=== PATIENT | female | born 1960 | race Caucasian/White ===

== ENCOUNTER 2019-07-25 09:12 | Outpatient (CLI) | payer BC, SELFPAY ==
[2019-07-25 10:08] LABS: Alanine Aminotransferase 22 U/L (0-33); Albumin Level 4.3 g/dL (3.5-5.2); Alkaline Phosphatase 90 IU/L (35-105); Anion Gap 14.8 (5-19); Aspartate Amino Transferase 24 U/L (0-32); Blood Urea Nitrogen 16 mg/dL (6-20); Calcium 9.9 mg/Dl (8.6-10.0); Carbon Dioxide 25 mmol/L (22-29); Chloride 101 mmol/L (98-107); Globulin 3.1 g/dL (1.3-4.6); Glomerular Filtration Rate 85.6 mL/min (90-130); Glucose 101 mg/dL (74-109); Potassium 3.8 mmol/L (3.5-5.1); Sodium 137 mmol/L (136-145); Total Bilirubin 0.5 mg/dL (0.15-1.2); Total Protein 7.4 g/dL (6.6-8.7)
[2019-07-25 10:30] LABS: CA 15-3 13.3 U/mL (0-25)
--- NOTE | 2019-07-25 17:01 | ONC FU_ITS ---
Dr. Florez follow up note Patient: Mamie Krueger Unit #: [id number]: 1960 Dicatated By: Marie Florez M.D.Date of Visit:Jul 25, 2019 Onc Med Follow-up/Prog Note History of Present Illness: Pati Pinzon, 59-year-old female with history of fibrocystic involving left breast status post biopsy in 2015 . On the 11/20/2016 follow-up mammogram showed microcalcification in the central right breast and subsequently underwent stereotactic needle biopsy of right breast on 12/04/2016 it showed infiltrating ductal carcinoma grade 3 ER/UT negative HER-2/coirnna + 3+ and on 12/17/2016 she underwent right modified radical mastectomy with sentinel lymph node dissection final path report showed residual infiltrating ductal carcinoma grade 3 tumor size 0.5 cm surgical margin negative no lymphovascular involvement to lymph nodes were removed from right axilla both were negative malignancy Patient was seen by medical oncologist Dr. Wood Fulton in [place] and he did recommend Herceptin plus chemotherapy somehow patient did not keep follow with him. Now being observed at patient request Came for follow-up, denies any specific complaints, no fever or chills, no nausea or vomiting, no diarrhea constipation, no jaundice. Patient stopped taking all herbs . And also had colonoscopy done 05/26/2019, as per patient, polyp was removed it was benign. Medications: C 500 1 Tablet (of 500 mg) Oral daily, Calcium Carb-Cholecalciferol 1 Tablet (of 600-1000 mg - Units) Oral daily, D3-1000 1 Tablet (of 1000 Units) Oral daily, Eye-Ipyush Extra 1 Tablet Capsule Oral daily, Probiotic 1 Tablet Capsule Oral daily Allergies: Sulfa Antibiotics Review of Systems: Constitutional - Appetite is good and weight is stable. No fever, chills, hot flashes, or night sweats. Energy level is fair, ENMT - No sinus congestion/drainage. No mouth sores. No sore throat or difficulty swallowing, Hematologic/Lymphatic - No abnormal bruising or bleeding, Respiratory - No shortness of breath. No cough. No pleuritic pain or hemoptysis, Cardiovascular - No angina pain. No palpitations, Gastrointestinal - No nausea or vomiting. No heartburn or acid reflux. No diarrhea or constipation. No blood in the stool or black stools, Genitourinary (F) - No dysuria or hematuria. No urinary frequency. No urgency or incontinence, Musculoskeletal - No joint or bone pain, Neurologic - No headache or dizziness. No numbness/paresthesias or other focal neurologic symptoms, Psychiatric - No anxiety or depression. No insomnia. Vital Signs: Performed on Jul 25, 2019 11:17 Height - 65.00 in Weight - 196.0 lbs (LOW) BSA - 1.96 sq.m BMI - 32.62 (HIGH) Temperature - 97.8 F (LOW) Pulse - 120 /min (HIGH) Respiration - 24 /min BP - 148/64 mm(hg) (HIGH) O2 Sat - 100 % Pain - 0 Performance Status: 0 - Fully active, able to carry on all predisease activities without restrictions. (ECOG) Physical Examination: Respiratory - Lungs are clear to auscultation without rhonchi or wheezing, Cardiovascular - Regular rate and rhythm of heart, Extremities - no edema. Lab/Imaging: Test performed on Feb 07, 2019 12:13 ALT (SGPT) 49 U/L AST (SGOT) 34 U/L Test performed on Feb 07, 2019 09:26 Sodium 139 mmol/L Potassium 4.3 mmol/L Chloride 102 mmol/L CO2 24 mmol/L Anion Gap 17.3 BUN 17 mg/dL Creatinine 0.7 mg/dL Cr Clearance (Est) 124.46 mL/min eGFR 85.9 mL/min Glucose 102 mg/dl Calcium 9.2 mg/dL Protein, Total 7.1 g/dL Albumin 4.4 g/dL Globulin 2.7 gm/dL Bilirubin, Total 0.6 mg/dL Alkaline Phosphatase 77 IU/L WBC 5.8 /cmm RBC 4.20 10 6/cmm HGB 13.5 g/dl HCT 38.8 % MCV 92.4 /cmm MCH 32.1 pg MCHC 34.8 g/dl RDW 13.1 % Platelet Count 201 10 3/cmm MPV 8.7 fl Neutrophils 3.6 10 3/cmm Lymphocytes 1.6 10 3/cmm Monocytes 0.5 10 3/cmm Eosinophils 0.1 10 3/cmm Basophils 0.0 10 3/cmm Neutrophil % 61.9 % Lymphocyte % 28.0 % Monocyte % 8.5 % Eosinophil % 1.1 % Basophils % 0.5 % CA 15-3 14.5 U/mL Impression: Infiltrating ductal carcinoma of right breast status post MRM with sentinel lymph node on 12/17/2016 final path shows residual infiltrating ductal carcinoma grade 3 tumor size 0.5 cm in addition to that stereotactic biopsy of right breast showed invasive component so altogether more than 0.5 cm but less than 1 cm T1b Addendum case was discussed with Dr. Mark Moore pathologist at [facility] as per discussion he said based on the size of biopsy cavity tumor size was estimated to be around 2 cm x 1 cm so T2 lesion 2 lymph nodes from right axilla were removed both were negative for malignancy N0 ER/UT negative HER-2/corinna positive +3 Patient decided AGAINST MEDICAL ADVICE regarding adjuvant therapy. Now being monitored. Follow-up mammogram done on 11/30/2018, was BI-RADS 2 benign. Plan: Discussed with patient regarding her labs were CMP within normal limits including ALT and AST, now 22/24 compared to 49/34 on 02/07/2019 and CA 15???3 was 13.3 which is within normal range Clinically, patient is doing well, with no signs symptoms suggestive of recurrence of disease. Earlier her CMP showed abnormal LFTs, patient was advised to discontinue all the herbs . And repeat CMP shows normalization of ALT/AST. Next Patient return to clinic in 6 months with CMP and follow-up mammogram. Signed By: Marie Florez M.D. <<Signature on File>>
== END 2019-07-25 09:13 | disposition home or self-care (01) ==
LOC: ONCMED 09:15
PROVIDERS: Family Provider Family Medicine; Visit Provider Internal Medicine Hematology & Oncology
DX: Z08 Encounter for follow-up examination after completed treatment for malignant neoplasm (principal); Z85.3 Personal history of malignant neoplasm of breast; Z90.11 Acquired absence of right breast and nipple; Z53.29 Procedure and treatment not carried out because of patient's decision for other reasons
CPT/HCPCS: 80053; 86300; G0463

== ENCOUNTER 2020-01-23 09:40 | Outpatient (CLI) | payer OTHER, SELFPAY ==
[2020-01-23 11:03] LABS: Alanine Aminotransferase 20 U/L (0-33); Alkaline Phosphatase 74 IU/L (35-105); Aspartate Amino Transferase 25 U/L (0-32); Blood Urea Nitrogen 13 mg/dL (6-20); Carbon Dioxide 23 mmol/L (22-29); Chloride 105 mmol/L (98-107); Globulin 3.1 g/dL (1.3-4.6); Glomerular Filtration Rate 85.6 mL/min (90-130); Glucose 103 mg/dL (65-115); Osmolality Calculated 280 mOsm/kg (285-295); Sodium 137 mmol/L (136-145); Total Bilirubin 0.5 mg/dL (0.15-1.2); Total Protein 7.1 g/dL (6.6-8.7)
[2020-01-23 11:16] LABS: Anion Gap 13.5 (5-19); Potassium 4.5 mmol/L (3.5-5.1)
--- NOTE | 2020-01-23 13:24 | ONC FU_ITS ---
Dr. Florez follow up note Patient: Mamie Krueger Unit #: [id number]: 1960 Dicatated By: Marie Florez M.D.Date of Visit:Jan 23, 2020 Onc Med Follow-up/Prog Note History of Present Illness: Pati Pinzon, 59-year-old female with history of fibrocystic involving left breast status post biopsy in 2015 . On the 11/20/2016 follow-up mammogram showed microcalcification in the central right breast and subsequently underwent stereotactic needle biopsy of right breast on 12/04/2016 it showed infiltrating ductal carcinoma grade 3 ER/NE negative HER-2/corinna + 3+ and on 12/17/2016 she underwent right modified radical mastectomy with sentinel lymph node dissection final path report showed residual infiltrating ductal carcinoma grade 3 tumor size 0.5 cm surgical margin negative no lymphovascular involvement to lymph nodes were removed from right axilla both were negative malignancy Patient was seen by medical oncologist Dr. Wood Fulton in [place] and he did recommend Herceptin plus chemotherapy somehow patient did not keep follow with him. Now being observed at patient request s/p colonoscopy done 05/26/2019, as per patient, polyp was removed it was benign .Follow-up mammogram was done on December 07, 2019, showed BI-RADS 2 benign findings no evidence of malignancy seen in left breast Came for follow-up, denies any specific complaints, no fever chills, no nausea or vomiting, no diarrhea constipation, no new bony pains, no weight loss, appetite is good, overall feeling well with no new signs symptoms Medications: C 500 1 Tablet (of 500 mg) Oral daily, Calcium Carb-Cholecalciferol 1 Tablet (of 600-1000 mg - Units) Oral daily, D3-1000 1 Tablet (of 1000 Units) Oral daily, Eye-Piyush Extra 1 Tablet Capsule Oral daily, Probiotic 1 Tablet Capsule Oral daily Allergies: Sulfa Antibiotics Review of Systems: Review of Systems is not available for this patient. Vital Signs: Performed on Jan 23, 2020 11:34 Height - 65.00 in Weight - 200.0 lbs (HIGH) BSA - 1.98 sq.m BMI - 33.28 (HIGH) Temperature - 98.3 F (LOW) Pulse - 114 /min (HIGH) Respiration - 24 /min BP - 189/148 mm(hg) (HIGH) O2 Sat - 98 % Pain - 0 Performance Status: 0 - Fully active, able to carry on all predisease activities without restrictions. (ECOG) Physical Examination: Respiratory - Lungs are clear, Cardiovascular - Regular rate and rhythm of heart, Gastrointestinal - Soft, bowel sounds present, nontender, Extremities - No visible edema. Lab/Imaging: Most recent lab results are not available for this patient. Impression: Infiltrating ductal carcinoma of right breast status post MRM with sentinel lymph node on 12/17/2016 final path shows residual infiltrating ductal carcinoma grade 3 tumor size 0.5 cm in addition to that stereotactic biopsy of right breast showed invasive component so altogether more than 0.5 cm but less than 1 cm T1b Addendum case was discussed with Dr. Mark Moore pathologist at [facility] as per discussion he said based on the size of biopsy cavity tumor size was estimated to be around 2 cm x 1 cm so T2 lesion 2 lymph nodes from right axilla were removed both were negative for malignancy N0 ER/NE negative HER-2/corinna positive +3 Patient decided AGAINST MEDICAL ADVICE regarding adjuvant therapy. Now being monitored. Follow-up mammogram done on 11/30/2018, was BI-RADS 2 benign. Plan: Discussed with patient regarding her labs CMP done on January 23, 2020 showed CBC within normal range including LFTs and alk phos. Follow-up mammogram done on December 07, 2019 showed benign findings in left breast Clinically, patient doing well with no signs symptom suggestive of recurrence of disease. She had abnormal LFTs but now normalized since July 2019, could be due to herbs she was taking. Return to clinic in 6 months with CBC CMP Signed By: Marie Florez M.D. <<Signature on File>>
== END 2020-01-23 09:41 | disposition home or self-care (01) ==
LOC: ONCMED 09:45
PROVIDERS: PCP Family Medicine; Visit Provider Internal Medicine Hematology & Oncology
DX: Z85.3 Personal history of malignant neoplasm of breast (principal); Z90.11 Acquired absence of right breast and nipple; R94.5 Abnormal results of liver function studies
CPT/HCPCS: 80053; G0463

== ENCOUNTER 2021-02-11 14:09 | Outpatient (CLI) | payer BC, SELFPAY ==
[2021-02-11 14:33] LABS: Basophils % 0.4 %; Hematocrit 40.1 % (37.0-47.0); Hemoglobin 12.9 g/dL (11.5-15.3); Lymphocytes # 1.9 10^3/uL (0.8-4.8); Lymphocytes % 25.3 %; Mean Corpuscular HGB Conc 32.2 g/dL (30.0-36.0); Mean Corpuscular Hemoglobin 30.9 pg (28.0-34.0); Mean Corpuscular Volume 96.2 fL (81-99); Mean Platelet Volume 10.5 fL (7.4-10.4); Monocytes # 0.5 10^3/uL (0.2-0.9); Neutrophils # 5.11 10^3/uL (1.8-7.7); Neutrophils % 67.2 %; Nucleated Red Blood Cells % 0 %; Platelet Count 233 10^3/cmm (130-400); Red Blood Count 4.17 10^6/uL (4.1-5.3); Red Cell Distribution Width 12.5 % (12.1-15.1); White Blood Count 7.6 10^3/uL (4.0-10.0)
[2021-02-11 15:11] LABS: Alanine Aminotransferase 20 U/L (0-33); Albumin Level 4.3 g/dL (3.5-5.2); Alkaline Phosphatase 81 IU/L (35-105); Anion Gap 12.9 (5-19); Aspartate Amino Transferase 23 U/L (0-32); Blood Urea Nitrogen 12 mg/dL (8-23); Calcium 9.1 mg/dL (8.5-10.5); Carbon Dioxide 25 mmol/L (22-29); Chloride 104 mmol/L (98-107); Globulin 2.5 g/dL (1.3-4.6); Glomerular Filtration Rate 85.4 mL/min (90-130); Glucose 90 mg/dL (65-115); Osmolality Calculated 285 mOsm/kg (285-295); Potassium 3.9 mmol/L (3.5-5.1); Sodium 138 mmol/L (136-145); Total Bilirubin 0.5 mg/dL (0.15-1.2); Total Protein 6.8 g/dL (6.6-8.7)
--- NOTE | 2021-02-11 16:29 | ONC FU_ITS ---
Dr. Florez follow up note Patient: Mamie Krueger Unit #: [id number]: 1960 Dicatated By: Marie Florez M.D.Date of Visit:Feb 11, 2021 Onc Med Follow-up/Prog Note History of Present Illness: Pati Pinzon, 60-year-old female with history of fibrocystic involving left breast status post biopsy in 2015 . On the 11/20/2016 follow-up mammogram showed microcalcification in the central right breast and subsequently underwent stereotactic needle biopsy of right breast on 12/04/2016 it showed infiltrating ductal carcinoma grade 3 ER/MA negative HER-2/corinna + 3+ and on 12/17/2016 she underwent right modified radical mastectomy with sentinel lymph node dissection final path report showed residual infiltrating ductal carcinoma grade 3 tumor size 0.5 cm surgical margin negative no lymphovascular involvement to lymph nodes were removed from right axilla both were negative malignancy Patient was seen by medical oncologist Dr. Wood Fulton in [place] and he did recommend Herceptin plus chemotherapy somehow patient did not keep follow with him. Now being observed at patient request s/p colonoscopy done 05/26/2019, as per patient, polyp was removed it was benign .Follow-up mammogram was done on December 07, 2019, showed BI-RADS 2 benign findings no evidence of malignancy seen in left breast Follow-up mammogram done on December 10, 2020 shows BI-RADS 2, benign Came for follow-up, denies any specific complaints, no fever chills, no nausea or vomiting, no diarrhea or constipation, no new bony pains, appetite is good Medications: C 500 1 Tablet (of 500 mg) Oral daily, Calcium Carb-Cholecalciferol 1 Tablet (of 600-1000 mg - Units) Oral daily, D3-1000 1 Tablet (of 1000 Units) Oral daily, Eye-Piyush Extra 1 Tablet Capsule Oral daily, Probiotic 1 Tablet Capsule Oral daily Allergies: Sulfa Antibiotics Review of Systems: Review of Systems is not available for this patient. Vital Signs: Performed on Feb 11, 2021 16:13 Height - 65.00 in Weight - 190.8 lbs (LOW) BSA - 1.94 sq.m BMI - 31.75 (HIGH) Temperature - 97 F (LOW) Pulse - 120 /min (HIGH) Respiration - 18 /min BP - 139/85 mm(hg) O2 Sat - 98 % Pain - 0 Fatigue - 0 Performance Status: 0 - Fully active, able to carry on all predisease activities without restrictions. (ECOG) Physical Examination: Respiratory - Lungs are clear to auscultation, Cardiovascular - Regular rate and rhythm of heart, Gastrointestinal - Soft, bowel sounds present, Extremities - No visible edema or rash. Lab/Imaging: Most recent lab results are not available for this patient. Impression: Infiltrating ductal carcinoma of right breast status post MRM with sentinel lymph node on 12/17/2016 final path shows residual infiltrating ductal carcinoma grade 3 tumor size 0.5 cm in addition to that stereotactic biopsy of right breast showed invasive component so altogether more than 0.5 cm but less than 1 cm T1b Addendum case was discussed with Dr. Mark Moore pathologist at [facility] as per discussion he said based on the size of biopsy cavity tumor size was estimated to be around 2 cm x 1 cm so T2 lesion 2 lymph nodes from right axilla were removed both were negative for malignancy N0 ER/MA negative HER-2/corinna positive +3 Patient decided AGAINST MEDICAL ADVICE regarding adjuvant therapy. Now being monitored. Follow-up mammogram done on 11/30/2018, was BI-RADS 2 benign. follow-up mammogram done in December 2020 shows no abnormality, BI-RADS 2, benign Plan: . Discussed with patient regarding her labs white blood count 7.6 hemoglobin 12.9 hematocrit 40.1 platelets 233,000 CMP within normal limits and follow-up mammogram done in December 2020 shows no abnormality, BI-RADS 2, benign Clinically, patient is doing well with no new signs symptoms history of disease progression or recurrence her follow-up lab work-up is within normal range, resolution of mild transaminitis. Follow-up mammogram shows benign findings., Will continue to monitor and she will return to clinic in 3 months with CBC CMP and will continue yearly follow-up mammogram. Signed By: Marie Florez M.D. <<Signature on File>>
== END 2021-02-11 14:10 | disposition home or self-care (01) ==
LOC: ONCMED 14:11
PROVIDERS: PCP Family Medicine; Visit Provider Internal Medicine Hematology & Oncology
DX: Z08 Encounter for follow-up examination after completed treatment for malignant neoplasm (principal); Z85.3 Personal history of malignant neoplasm of breast
CPT/HCPCS: 36415; 80053; 85025; 99214

== ENCOUNTER 2021-08-18 12:09 | Outpatient (CLI) | payer BC, SELFPAY ==
[2021-08-18 13:02] LABS: Basophils % 0.4 %; Hematocrit 39.8 % (37.0-47.0); Hemoglobin 12.9 g/dL (11.5-15.3); Lymphocytes # 1.8 10^3/uL (0.8-4.8); Lymphocytes % 24.5 %; Mean Corpuscular HGB Conc 32.4 g/dL (30.0-36.0); Mean Corpuscular Hemoglobin 31.5 pg (28.0-34.0); Mean Corpuscular Volume 97.3 fl (81-99); Mean Platelet Volume 10.7 fL (7.4-10.4); Monocytes # 0.6 10^3/uL (0.2-0.9); Monocytes % 7.4 %; Neutrophils # 5.03 10^3/uL (1.8-7.7); Neutrophils % 67.6 %; Nucleated Red Blood Cells % 0 %; Platelet Count 227 10^3/cmm (130-400); Red Blood Count 4.09 10^6/uL (4.1-5.3); Red Cell Distribution Width 12.3 % (12.1-15.1); White Blood Count 7.4 10^3/uL (4.0-10.0)
[2021-08-18 13:21] LABS: Alanine Aminotransferase 17 U/L (0-33); Albumin Level 4.4 g/dL (3.5-5.2); Alkaline Phosphatase 88 IU/L (35-105); Anion Gap 18.1 (5-19); Aspartate Amino Transferase 20 U/L (0-32); Blood Urea Nitrogen 11 mg/dL (8-23); Calcium 9.1 mg/dL (8.5-10.5); Carbon Dioxide 22 mmol/L (22-29); Chloride 102 mmol/L (98-107); Globulin 2.6 g/dL (1.3-4.6); Glomerular Filtration Rate 85.1 mL/min (90-130); Glucose 96 mg/dL (65-115); Osmolality Calculated 285 mOsm/kg (285-295); Potassium 4.1 mmol/L (3.5-5.1); Sodium 138 mmol/L (136-145); Total Bilirubin 0.4 mg/dL (0.15-1.2)
--- NOTE | 2021-08-18 17:25 | ONC FU_ITS ---
Dr. Florez follow up note Patient: Mamie Krueger Unit #: [id number]: 1960 Dicatated By: Marie Florez M.D.Date of Visit:Aug 18, 2021 Onc Med Follow-up/Prog Note History of Present Illness: Pati Pinzon, 61-year-old female with history of fibrocystic involving left breast status post biopsy in 2015 . On the 11/20/2016 follow-up mammogram showed microcalcification in the central right breast and subsequently underwent stereotactic needle biopsy of right breast on 12/04/2016 it showed infiltrating ductal carcinoma grade 3 ER/MS negative HER-2/corinna + 3+ and on 12/17/2016 she underwent right modified radical mastectomy with sentinel lymph node dissection final path report showed residual infiltrating ductal carcinoma grade 3 tumor size 0.5 cm surgical margin negative no lymphovascular involvement to lymph nodes were removed from right axilla both were negative malignancy Patient was seen by medical oncologist Dr. Wood Fulton in [place] and he did recommend Herceptin plus chemotherapy somehow patient did not keep follow with him. Now being observed at patient request s/p colonoscopy done 05/26/2019, as per patient, polyp was removed it was benign .Follow-up mammogram was done on December 07, 2019, showed BI-RADS 2 benign findings no evidence of malignancy seen in left breast Follow-up mammogram done on December 10, 2020 shows BI-RADS 2, benign Came for follow-up, denies any specific complaints, no fever chills, no nausea or vomiting, no diarrhea constipation, no new bony pains,Denies any breast mass or nipple discharge, appetite is good, overall quality of life is great.Patient and her decided against Covid vaccination Medications: C 500 1 Tablet (of 500 mg) Oral daily, Calcium Carb-Cholecalciferol 1 Tablet (of 600-1000 mg - Units) Oral daily, D3-1000 1 Tablet (of 1000 Units) Oral daily, Eye-Piyush Extra 1 Tablet Capsule Oral daily, Probiotic 1 Tablet Capsule Oral daily Allergies: Sulfa Antibiotics Review of Systems: Review of Systems is not available for this patient. Vital Signs: Performed on Aug 18, 2021 16:22 Height - 65.00 in Weight - 197.8 lbs (HIGH) BSA - 1.97 sq.m BMI - 32.92 (HIGH) Temperature - 97.7 F (LOW) Pulse - 123 /min (HIGH) Respiration - 18 /min BP - 156/85 mm(hg) (HIGH) O2 Sat - 99 % Pain - 0 Fatigue - 2 Performance Status: 0 - Fully active, able to carry on all predisease activities without restrictions. (ECOG) Physical Examination: Respiratory - Lungs are clear to auscultation, Cardiovascular - Regular rate and rhythm of heart, Gastrointestinal - Soft, bowel sounds present, Extremities - No visible edema. Lab/Imaging: Most recent lab results are not available for this patient. Impression: Infiltrating ductal carcinoma of right breast status post MRM with sentinel lymph node on 12/17/2016 final path shows residual infiltrating ductal carcinoma grade 3 tumor size 0.5 cm in addition to that stereotactic biopsy of right breast showed invasive component so altogether more than 0.5 cm but less than 1 cm T1b Addendum case was discussed with Dr. Mark Moore pathologist at [facility] as per discussion he said based on the size of biopsy cavity tumor size was estimated to be around 2 cm x 1 cm so T2 lesion 2 lymph nodes from right axilla were removed both were negative for malignancy N0 ER/MS negative HER-2/corinna positive +3 Patient decided AGAINST MEDICAL ADVICE regarding adjuvant therapy. Now being monitored. Follow-up mammogram done on 11/30/2018, was BI-RADS 2 benign. Plan: Discussed with patient regarding her labs white blood count 7.4 hemoglobin 12.9 hematocrit 39.8 platelets 227,000 CMP within normal limits Clinically, patient doing well with no new signs symptoms history of recurrence of disease, patient will return to clinic in 6 months with CBC CMP and follow-up yearly mammogram, with that she will complete 5 years of follow-up and if lab work-up and mammogram is within normal range, then will change her follow-up to yearly basis. Signed By: Marie Florez M.D. <<Signature on File>>
== END 2021-08-18 12:10 | disposition home or self-care (01) ==
PROVIDERS: PCP Family Medicine; Visit Provider Internal Medicine Hematology & Oncology
DX: Z08 Encounter for follow-up examination after completed treatment for malignant neoplasm (principal); Z85.3 Personal history of malignant neoplasm of breast; Z90.11 Acquired absence of right breast and nipple
CPT/HCPCS: 36415; 80053; 85025; 99214

== ENCOUNTER 2022-03-03 10:50 | Oncology outpatient (recurring) (ONCR) | payer BC, SELFPAY ==
[2022-03-03 11:14] LABS: Basophils % 0.4 %; Eosinophils # 0.2 10^3/uL (0.0-0.8); Eosinophils % 2.1 %; Hematocrit 41.3 % (37.0-47.0); Hemoglobin 13.1 g/dL (11.5-15.3); Lymphocytes # 1.9 10^3/uL (0.8-4.8); Lymphocytes % 24.8 %; Mean Corpuscular HGB Conc 31.7 g/dL (30.0-36.0); Mean Corpuscular Hemoglobin 31.3 pg (28.0-34.0); Mean Corpuscular Volume 98.8 fl (81-99); Mean Platelet Volume 10.5 fL (7.4-10.4); Monocytes # 0.6 10^3/uL (0.2-0.9); Monocytes % 8.5 %; Neutrophils # 4.84 10^3/uL (1.8-7.7); Neutrophils % 63.9 %; Nucleated Red Blood Cells % 0 %; Platelet Count 234 10^3/cmm (130-400); Red Blood Count 4.18 10^6/uL (4.1-5.3); Red Cell Distribution Width 12.3 % (12.1-15.1); White Blood Count 7.6 10^3/uL (4.0-10.0)
[2022-03-03 11:34] LABS: Alanine Aminotransferase 18 U/L (0-33); Albumin Level 4.4 g/dL (3.5-5.2); Alkaline Phosphatase 85 U/L (35-105); Anion Gap 17.4 (5-19); Aspartate Amino Transferase 23 U/L (0-32); Blood Urea Nitrogen 13 mg/dL (8-23); Calcium 9.3 mg/dL (8.5-10.5); Carbon Dioxide 22 mmol/L (22-29); Chloride 103 mmol/L (98-107); Globulin 2.8 g/dL (1.3-4.6); Glomerular Filtration Rate 85.1 mL/min (90-130); Glucose 102 mg/dL (65-115); Osmolality Calculated 286 mOsm/kg (285-295); Potassium 4.4 mmol/L (3.5-5.1); Sodium 138 mmol/L (136-145); Total Bilirubin 0.6 mg/dL (0.15-1.2); Total Protein 7.2 g/dL (6.6-8.7)
== END 2022-03-04 23:59 | disposition home or self-care (01) ==
PROVIDERS: PCP Family Medicine; Visit Provider Internal Medicine Hematology & Oncology
DX: Z08 Encounter for follow-up examination after completed treatment for malignant neoplasm (principal); Z85.3 Personal history of malignant neoplasm of breast; Z90.11 Acquired absence of right breast and nipple; Z92.21 Personal history of antineoplastic chemotherapy; Z87.891 Personal history of nicotine dependence
CPT/HCPCS: 36415; 80053; 85025